=== PATIENT | female | born 1955 | race Caucasian/White ===

== ENCOUNTER 2020-08-11 09:55 | Outpatient (REF) | payer OTHER, SELFPAY ==
[2020-08-11 10:18] LABS: COVID-19 Test Negative (Negative)
== END 2020-08-11 09:56 | disposition home or self-care (01) ==
LOC: HO.EMPCOV 09:55
PROVIDERS: Visit Provider Internal Medicine
DX: Z20.822 Contact with and (suspected) exposure to COVID-19 (principal)
CPT/HCPCS: 36415; 87635; C9803